=== PATIENT | female | born 1995 ===

== ENCOUNTER 2022-10-15 19:41 | Emergency (ER) | payer OTHER ==
[~2022-10-15] VITALS: Ht 167.6 cm; Wt 62.6 kg
== END 2022-10-15 20:13 | disposition home or self-care (01) ==
LOC: ER 19:41
DX: S29.012A Strain of muscle and tendon of back wall of thorax, initial encounter (principal); X58.XXXA Exposure to other specified factors, initial encounter
CPT/HCPCS: A9270